=== PATIENT | female | born 1955 | race Caucasian/White ===

== ENCOUNTER 2022-10-04 10:05 | Emergency (ER) | payer MEDICARE, MEDICAID, SELFPAY ==
[2022-10-04] VITALS (9 sets, daily range): BP systolic 104–172; BP diastolic 63–83; PULSE 70–93; RESP 14–33; TEMP 36.6; O2SAT 90–100
--- NOTE | ~2022-10-04 | CT_ITS ---
EXAMINATION: CT abdomen pelvis w con DATE: 10/04/2022 14:01 INDICATION: Epigastric abdominal pain. Abdominal distention. Nausea. TECHNIQUE: Computed tomography (CT) of the abdomen and pelvis was performed with 100 mL Omnipaque 350 intravenous contrast. Automated exposure control and iterative reconstruction technique were employe d. The dose-length product was 1627.83 mGy-cm. COMPARISON: None. FINDINGS: The visualized portions of the lung bases demonstrate subpleural bands in the lower lobes a nd right middle lobe. A calcified left lung nodule and calcified left hilar lymph nodes are consisten t with old granulomatous disease. No pleural effusion. The heart size is normal. No pericardial effus ion. There are coronary artery calcifications. The liver, spleen, gallbladder, and pancreas are regina l. There are masses in the adrenal glands measuring soft tissue attenuation measuring up to 1.8 cm on the right. The kidneys are normal. There is diverticulosis of the colon without evidence of divertic ulitis. There are surgical changes in the stomach. There is a supraumbilical ventral hernia containin g nonobstructed transverse colon. There are changes of appendectomy. There is an infraumbilical ventr al hernia containing small bowel. Small bowel is dilated proximal to the hernia, consistent with obst ruction. There are no pathologically enlarged lymph nodes. There is no free intraperitoneal fluid. Th ere is severe lumbar spondylosis. IMPRESSION: 1. Small bowel obstruction secondary to an infraumbilical ventral hernia. 2. Supraumbilical ventral hernia containing nonobstructed transverse colon. 3. Bilateral adrenal masses measuring up to 1.8 cm. In the absence of known malignancy, these finding s are likely adenomas. Reviewed, dictated and finalized at location A. IMPRESSION: 1. Small bowel obstruction secondary to an infraumbilical ventral hernia. 2. Supraumbilical ventral hernia containing nonobstructed transverse colon. 3. Bilateral adrenal masses measuring up to 1.8 cm. In the absence of known mal ignancy, these findings are likely adenomas.
--- NOTE | 2022-10-04 10:07 | ECG_ITS ---
Measurements Intervals [place] Rate: 87 P: 64 DE: 207 QRS: -16 QRSD: 81 T: 60 QT: 287 QTc: 347 Interpretive Statements SINUS RHYTHM VENTRICULAR PREMATURE COMPLEX CONSIDER INFERIOR INFARCT, AGE INDETERMINATE BORDERLINE ST-T WAVE ABNORMALITY- LAT/HIGH LAT LEADS BASELINE ARTIFACT- I, II, AVR, AVL, AVF ABNORMAL ECG NO PREVIOUS ECG AVAILABLE FOR COMPARISON Electronically Signed On 10-04-2022 10:34:13 CDT by Brody Campuzano D.O.
--- NOTE | 2022-10-04 10:22 | ED.ABDPAIN ---
HPI - Abdominal Pain General Chief Complaint: Abdominal Pain Stated Complaint: abdominal pain Time Seen by Provider: 10/04/22 10:12 Source: patient Mode of arrival: ambulatory Limitations: no limitations History of Present Illness HPI narrative: Patient is a 67-year-old female who presents ED with report of abdominal pain. Patient reports she developed mid upper abdominal pain last night around 8-9 pm. Pain continued to worsen throughout the night. She developed nausea with dry heaving and was unable to keep down any food or drink. She did not take anything for the pain. Patient somewhat radiates up between her breasts. She also reports increased belching and cold sweats, denies any documented fever, diarrhea/constipation, rectal bleeding, melena, urinary sx's. Last BM yesterday and small, but normal. Patient denies previous Hx of similar pain. She does have Hx of gerd and gastric bypass surgery in 1976, ventral hernia repair 1994. Related Data Allergies Allergy/AdvReac Type Severity Reaction Status Date / Time No Known Allergies Allergy Verified 10/04/22 10:30 Review of Systems Review of Systems: CONSTITUTIONAL: See HPI. CARDIOVASCULAR: See HPI. RESPIRATORY: Denies cough or dyspnea. GASTROINTESTINAL: See HPI. GENITOURINARY: Denies dysuria or hematuria. SKIN: Denies rash or itching. MUSCULOSKELETAL: Denies back pain, joint pain, or myalgia. All systems reviewed & are unremarkable except as noted in HPI and below PMFSH Past Medical History Medical History GERD (gastroesophageal reflux disease) HTN (hypertension) Surgical History Surgical History H/O ventral hernia repair History of gastric bypass Social History Social History Smoking status: Never smoker Exam Narrative: GENERAL: Uncomfortable appearing, morbidly obese with BMI 49, non-toxic, in mild acute distress d/t pain. HEAD: Normocephalic, atraumatic. NECK: Supple. No adenopathy, no masses. RESPIRATORY: Airway patent, respirations nonlabored, borderline tachypneic. Clear to auscultation bilaterally, no rales, rhonchi, wheezing. CARDIOVASCULAR: Regular rate and rhythm without murmurs, rubs, or gallops. Peripheral pulses 2+ and equal bilaterally. ABDOMINAL: Abdomen nondistended, but slightly firm, tenderness throughout epigastric region, suprapubic region, left lower quadrant. Normoactive BS. Hernia bulge felt below umbilicus, no significant tenderness to palpation. No overlying erythema or warmth. MUSCULOSKELETAL: Moves all extremities. Strength/ROM intact without gross deformities. SKIN: Warm, dry, normal color. No rashes. NEURO: A&O X3. Speech clear. Cranial nerves II-XII grossly intact. Steady gait. No ataxic movements. PSYCHIATRIC: Appropriate mood and affect. Normal interaction. Course Vital Signs Vital signs: Vital Signs Temperature 97.9 F 10/04/22 10:10 Pulse Rate 93 10/04/22 10:10 Respiratory Rate 24 H 10/04/22 10:10 Blood Pressure 172/83 H 10/04/22 10:10 Pulse Oximetry 100 10/04/22 10:10 Oxygen Delivery Room Air 10/04/22 10:10 Temperature 97.9 F 10/04/22 10:10 Pulse Rate 88 10/04/22 17:48 Respiratory Rate 18 10/04/22 17:48 Blood Pressure 110/71 10/04/22 17:48 Pulse Oximetry 98 10/04/22 17:48 Oxygen Delivery Room Air 10/04/22 10:10 Oxygen Flow Rate 2 10/04/22 14:00 MDM - Abdominal Pain MDM Narrative Medical decision making narrative: Patient presented to ED with upper abdominal pain, nausea with dry heaving, pain radiating up into chest. Patient initially hypertensive upon arrival, tachycardic, afebrile. Likely component of pain. Patient was initially very uncomfortable appearing on initial evaluation. EKG without significant ST changes. Baseline troponin was negative. Patient given morphine, Zofran, fluids, Pr
[2022-10-04] MEDS: SODIUM CHLORIDE 0.9% IV 1,000 ML 999 ML IV CONT ×2 (10:31→12:05)
[2022-10-04] MEDS: ONDANSETRON INJ 4 MG/2 ML VIAL IV PUSH ×2 (10:31→12:05)
[2022-10-04] MEDS: MORPHINE SULFATE (*CRX) 4 MG/ML INJ IV PUSH (10:31)
[2022-10-04] MEDS: PANTOPRAZOLE SODIUM IV 40 MG VIAL IV PUSH (10:49)
[2022-10-04 11:27] LABS: Basophils Percent Auto 0.1 % (0.2-1.2); Eosinophils Percent Auto 0.1 % (0-4.4); Hematocrit 49.4 % (37.0-47.0); Immature Granulocyte Absolute 0.09 K/mm3 (0.00-0.031); Immature Granulocyte Percent A 0.6 % (0-0.5); Lymphocytes Absolute Auto 0.89 K/mm3 (0.9-3.2); Mean Corpuscular HGB Conc 32.4 g/dl (32-36); Mean Corpuscular Hemoglobin 31.7 pg (26-34); Mean Platelet Volume 11.3 fl (7.4-10.4); Monocytes Absolute Auto 0.3 K/mm3 (0.1-0.6); Monocytes Percent Auto 2.2 % (2.6-8.5); Neutrophils Absolute Auto 13.4 K/mm3 (1.3-6.7); Platelet Count Result 258 k/mm3 (150-375); Red Blood Count 5.04 M/mm3 (4.2-5.4); Red Cell Distribution Width 13.5 % (11.5-14.5); White Blood Count 14.8 K/mm3 (4.5-10.0)
[2022-10-04 11:43] LABS: Appearance Urine Cloudy (Clear); Bacteria Urine 4+ /hpf; Bilirubin Urine Negative (Negative); Blood Urine Negative (Negative); Color Urine Yellow (Yellow); Glucose Urine UA 2+ mg/dL (Negative); Ketones Urine 3+ mg/dL (Negative); Leukocyte Esterase Ur Trace LEU/UL (Negative); Nitrate Urine Positive (Negative); Non Pathogenic Casts 0-2; Protein Urine Trace mg/dL (Negative); RBC Urine 0-2 /hpf (0-2); Squamous Epithelial Cell Urine None seen /hpf (Few); WBC Urine 21-50 /hpf; pH Urine 7.5 (5.0-9.0)
[2022-10-04 11:58] LABS: Add Urine Microscopic? YES
[2022-10-04] MEDS: HYDROmorphone HCL INJ (*CRX) 1 MG/ML SYR IV PUSH (13:20)
[2022-10-04] MEDS: METOCLOPRAMIDE HCL INJ 10 MG/2 ML VIAL IV PUSH (13:20)
[2022-10-04 13:40] LABS: Alanine Aminotransferase 24 U/L (6-35); Albumin Level 3.6 g/dL (3.5-5.1); Alkaline Phosphatase 86 U/L (38-126); Anion Gap 7 mmol/L (8-16); Aspartate Amino Transferase 24 U/L (14-36); Bilirubin,Total 0.8 mg/dL (0.2-1.3); Blood Urea Nitrogen 9 mg/dL (7-17); Calcium 9.2 mg/dL (8.4-10.2); Carbon Dioxide 23 mmol/L (22-30); Chloride 106 mmol/L (98-107); Estimated CRCL calculation 115 ml/min; Estimated Glomerular Filt Rate > 60; Glucose 185 mg/dL (65-110); Lipase 21 U/L (23-300); Potassium 3.7 mmol/L (3.4-5.0); Sodium 136 mmol/L (137-145)
[2022-10-04 13:51] LABS: Troponin I < 0.012 ng/mL (0.000-0.034)
[2022-10-04 14:26] LABS: Lactic Acid Reflex 1.8 mmol/L (0.7-2.0)
--- NOTE | 2022-10-04 16:37 | PM.CNGS ---
Assessment and Plan Assessment and plan (1) Small bowel obstruction: Code(s): K56.609 - Unspecified intestinal obstruction, unspecified as to partial versus complete obstruction Status: Acute Assessment and Plan: exam benign currently in ED, likely hernia has reduced at this point, will do food challenge in ED and if josias diet ok to dc and f/u as outpt (2) Incarcerated incisional hernia: Code(s): K43.0 - Incisional hernia with obstruction, without gangrene Status: Acute Assessment and Plan: see above, likely reduced at this point, will need repair in the future although needs extesive wt loss History of Present Illness Consult details Consult date: 10/04/22 Reason for consult: abdominal pain Requesting physician: Joy Gaming PA-C Narrative: The patient is a 67-year-old female with multiple medical issues presenting with crampy abdominal pain since last night. Patient reports the pain is in her upper abdomen and radiating to her chest. The patient report nausea and dry heaving. The patient reports that she has had no appetite since this started. The patient did have a small bowel movement yesterday. Of note, the patient had a open gastric bypass in the . She subsequently developed multiple ventral hernias which were repaired in 1994. Review of Systems Constitutional: Constitutional: Reports as per HPI, Reports anorexia, Reports fatigue, Reports lethargy, Reports poor appetite and Reports weakness Eyes: Eyes: Reports no additional eye complaints ENT: Reports system reviewed and no additional complaints, except as documented Cardiovascular: Cardiovascular: Reports no additional cardiovascular complaints Respiratory: Respiratory: Reports no additional respiratory complaints Gastrointestinal: Gastrointestinal: Reports as per HPI, Reports abdominal pain, Reports belching, Reports bloating, Reports GI cramping, Reports early satiety, Reports nausea and Denies vomiting Genitourinary: Genitourinary: Reports no additional female genitourinary complaints Musculoskeletal: Musculoskeletal: Reports no additional musculoskeletal complaints Integumentary/Breasts: Skin/Breast: Reports system reviewed and no additional complaints, except as docu Neurologic: Reports system reviewed and no additional complaints, except as documented Psychiatric: Psychiatric: Reports no additional psychiatric complaints Endocrine: Endocrine: Reports no additional endocrine complaints Hematologic/Lymphatic: Hematologic/Lymphatic: Reports no additional hematologic/lymphatic complaints Allergic/Immunologic: Allergic/Immunologic: Reports no additional allergic/immunologic complaints [facility] Past Medical History Medical History GERD (gastroesophageal reflux disease) HTN (hypertension) Surgical History Surgical History H/O ventral hernia repair History of gastric bypass Social History Social History Smoking status: Never smoker Meds Home Medications and Allergies Allergies Allergy/AdvReac Type Severity Reaction Status Date / Time No Known Allergies Allergy Verified 10/04/22 10:30 Vital Signs Vital Signs - 24 hr 10/04/22 10:10 10/04/22 13:24 10/04/22 14:00 Temperature 36.6 C Pulse Rate 93 85 Respiratory Rate 24 H 18 Blood Pressure 172/83 H 124/76 Pulse Oximetry 100 98 Oxygen Delivery Room Air Oxygen Flow Rate 2 10/04/22 11:58 Temperature Pulse Rate 85 Respiratory Rate 14 Blood Pressure 104/63 Pulse Oximetry 97 Oxygen Delivery Oxygen Flow Rate Exam Const: General: cooperative, comfortable, no acute distress and obese HENMT: Head: normal to inspection, normocephalic and atraumatic Eyes: General: appearance normal, both eyes and all related structures Neck: Neck: normal visual inspection, f
== END 2022-10-04 17:49 | disposition home or self-care (01) ==
PROVIDERS: Emergency Medicine; Emergency Provider Physician Assistant; PCP Nurse Practitioner Family
DX: K43.6 Other and unspecified ventral hernia with obstruction, without gangrene (principal); K43.9 Ventral hernia without obstruction or gangrene; N30.00 Acute cystitis without hematuria; I10 Essential (primary) hypertension; K21.9 Gastro-esophageal reflux disease without esophagitis; Z98.84 Bariatric surgery status; E27.8 Other specified disorders of adrenal gland; I49.3 Ventricular premature depolarization; R94.31 Abnormal electrocardiogram [ECG] [EKG]
CPT/HCPCS: 36415; 74177; 80053; 81001; 83605; 83690; 84484; 85025; 87077; 87086; 87186; 93005; 96361; 96365; 96375; 96376; 99284; C9113; J0696; J1170; J2270; J2405; J2765; J7030; Q9967

== ENCOUNTER 2022-12-27 18:50 | Inpatient (IN) | payer MEDICARE, MEDICAID, SELFPAY ==
[2022-12-27] VITALS (17 sets, daily range): BP systolic 113–148; BP diastolic 65–85; PULSE 76–97; RESP 14–20; TEMP 36.4–36.6; O2SAT 94–99
--- NOTE | ~2022-12-27 | CT_ITS ---
CT of the Abdomen and Pelvis: Indication: Incarcerated incisional hernia Technique: 2.5 mm axial scans were obtained through the abdomen and pelvis following intravenous adm inistration of 100 cc of Omnipaque 350. Dose reduction technique was used on this scan by utilizing a utomated exposure control and iterative reconstruction technique. The dose-length product (DLP) was 1 613.74 mGy-cm. COMPARISON: 10/04/2022 Findings: Scans through the lung bases demonstrate mild bibasilar atelectatic change, and left basil ar calcified granuloma.. The liver, spleen, pancreas, gallbladder, and kidneys are within normal limits. Bilateral adrenal nod ules are unchanged. No evidence of aortic aneurysm. No lymphadenopathy. There is an umbilical/ventral hernia containing a focal portion of the transverse colon. There is no obstruction related to this hernia. There is an additional low ventral hernia just left of midline co ntaining a focal loop of small bowel, with mild distention of small bowel proximal to the hernia, and collapsed small bowel distal to the hernia. Findings suggest partial small bowel obstruction related to this hernia. There is also fluid in this hernia sac with infiltration of the herniated fat. Images through the pelvis were performed. Urinary bladder unremarkable. No adnexal mass evident. No a scites. Impression: Overall, findings are very similar to prior exam from 10/04/2022. Probable partial small bowel obstruction related to low ventral hernia just left of midline containin g small bowel. There is fluid in the hernia sac with mild infiltration of the herniated fat. Correlat e for incarceration/angulation. Stable ventral/umbilical hernia containing portion of the transverse colon, without wall thickening o r obstruction related to this hernia. Stable bilateral adrenal nodules. Reviewed, dictated and finalized at [facility]. Impression: Overall, findings are very similar to prior exam from 10/04/2022. Probable partial small bowel obstruction related to low ventral hernia just lef t of midline containing small bowel. There is fluid in the hernia sac with mild infiltration of the herniated fat. Correlate for incarceration/angulation. Stable ventral/umbilical hernia containing portion of the transverse colon, wit hout wall thickening or obstruction related to this hernia. Stable bilateral adrenal nodules.
[2022-12-27 19:38] LABS: Basophils Percent Auto 0.1 % (0.2-1.2); Hematocrit 43.3 % (37.0-47.0); Hemoglobin 14.2 g/dL (12.0-15.0); Immature Granulocyte Absolute 0.07 K/mm3 (0.00-0.031); Immature Granulocyte Percent A 0.5 % (0-0.5); Lymphocytes Absolute Auto 0.77 K/mm3 (0.9-3.2); Lymphocytes Percent Auto 5.6 % (18.3-44.2); Mean Corpuscular HGB Conc 32.8 g/dl (32-36); Mean Corpuscular Hemoglobin 31.3 pg (26-34); Mean Corpuscular Volume 95.6 fl (80-100); Mean Platelet Volume 11.2 fl (7.4-10.4); Monocytes Absolute Auto 0.1 K/mm3 (0.1-0.6); Neutrophils Absolute Auto 12.7 K/mm3 (1.3-6.7); Neutrophils Percent Auto 92.8 % (45.5-73.1); Platelet Count Result 293 k/mm3 (150-375); Red Blood Count 4.53 M/mm3 (4.2-5.4); Red Cell Distribution Width 13.2 % (11.5-14.5); White Blood Count 13.7 K/mm3 (4.5-10.0)
[2022-12-27 19:41] LABS: Appearance Urine Cloudy (Clear); Bacteria Urine 4+ /hpf; Bilirubin Urine Negative (Negative); Blood Urine Negative (Negative); Color Urine Yellow (Yellow); Glucose Urine UA 2+ mg/dL (Negative); Ketones Urine 1+ mg/dL (Negative); Leukocyte Esterase Ur 2+ LEU/UL (Negative); Nitrate Urine Positive (Negative); Non Pathogenic Casts 0-2; Protein Urine 1+ mg/dL (Negative); Specific Grav Ur 1.022 (1.001-1.035); Squamous Epithelial Cell Urine Occasional /hpf (Few); WBC Urine >100 /hpf; pH Urine 6.5 (5.0-9.0)
[2022-12-27 19:49] LABS: Add Urine Microscopic? YES
--- NOTE | 2022-12-27 19:55 | ED.ABDPAIN ---
HPI - Abdominal Pain General Chief Complaint: Abdominal Pain <DEISY Browne Last Filed: 12/28/22 00:54> Stated Complaint: abd pain/vomiting <DEISY Browne Last Filed: 12/28/22 00:54> Time Seen by Provider: 12/27/22 19:44 <DEISY Browne Last Filed: 12/28/22 00:54> Source: patient and old records reviewed <DEISY Browne Last Filed: 12/28/22 00:54> Mode of arrival: ambulatory <DEISY Browne Filed: 12/28/22 00:54> Limitations: no limitations <DEISY Browne Last Filed: 12/28/22 00:54> History of Present Illness HPI narrative: Patient is a 67 y/o female who presents to the ED with c/o diffuse lower abdominal pain. Patient reports having a known ventral hernia. She has had frequent bouts of pain related to this. She was seen in the ED here on 10/04 and noted to have an incarcerated hernia with bowel obstruction at that time. She was evaluated by general surgery in the ED and had no further pain, no further vomiting, was able to tolerate p.o. intake and thought to be appropriate for outpatient follow-up. Patient reports she now has an appointment with Dr. Dang on 01/12 as her first appointment had to be rescheduled. Yesterday after she went to [facility], patient reported having worsening pain throughout her abdomen. She also reported having nausea and vomiting yesterday, which persisted throughout the night. Patient has been taking Tylenol and ibuprofen at home without much relief of the pain. She does still feel nauseous currently. She denies any fevers. She last had a bowel movement this morning, which was small but normal. Denies rectal bleeding or melena. Patient does also report having urinary frequency, urgency, dysuria over the last several days. <DEISY Browne Last Filed: 12/28/22 00:54> Related Data Home Medications: Home Medications Medication Instructions Recorded Confirmed amlodipine 5 mg tablet 5 mg PO DAILY 12/28/22 12/28/22 escitalopram oxalate 10 mg tablet 10 mg PO DAILY 12/28/22 12/28/22 losartan 100 12.5 tablet PO DAILY 12/28/22 12/28/22 mg-hydrochlorothiazide 12.5 mg tablet oxybutynin chloride 5 mg tablet 5 mg PO DAILY 12/28/22 12/28/22 pravastatin 20 mg tablet 20 mg PO DAILY 12/28/22 12/28/22 <Joy Gaming PA-C - Last Filed: 12/28/22 00:54> Allergies/Adverse Reactions: Allergies Allergy/AdvReac Type Severity Reaction Status Date / Time No Known Allergies Allergy Verified 12/27/22 19:04 <Joy Gaming PA-C - Last Filed: 12/28/22 00:54> Review of Systems Review of Systems: CONSTITUTIONAL: Denies fever, chills, or sweats. CARDIOVASCULAR: Denies chest pain. RESPIRATORY: Denies dyspnea. GASTROINTESTINAL: See HPI. GENITOURINARY: See HPI. SKIN: Denies rash or itching. MUSCULOSKELETAL: Denies back pain, joint pain, or myalgia. <Joy Gaming PA-C - Last Filed: 12/28/22 00:54> All systems reviewed & are unremarkable except as noted in HPI and below <Joy Gaming PA-C - Last Filed: 12/28/22 00:54> PMFSH Past Medical History Medical History: Medical History GERD (gastroesophageal reflux disease) HTN (hypertension) <Joy Gaming PA-C - Last Filed: 12/28/22 00:54> Surgical History Surgical History: Surgical History H/O ventral hernia repair History of gastric bypass <Joy Gaming PA-C - Last Filed: 12/28/22 00:54> Family History Family History: Family History (Updated 12/28/22 @ 01:27 by Arabella Simms RN) Sibling Diabetes mellitus Father Acute myocardial infarction Father Hypertension Mother Dementia <Joy Gaming PA-C - Last Filed: 12/28/22 00:54> Social History Social History: Social History (Reviewed 12/27/22 @
[2022-12-27 19:57] LABS: Albumin Level 4.4 g/dL (3.5-5.1); Alkaline Phosphatase 91 U/L (38-126); Anion Gap 13 mmol/L (8-16); Aspartate Amino Transferase 28 U/L (14-36); Bilirubin,Total 0.6 mg/dL (0.2-1.3); Blood Urea Nitrogen 8 mg/dL (7-17); Carbon Dioxide 22 mmol/L (22-30); Chloride 101 mmol/L (98-107); Estimated CRCL calculation 101 ml/min; Estimated Glomerular Filt Rate > 60; Glucose 184 mg/dL (65-110); Lipase 21 U/L (23-300); Potassium 3.6 mmol/L (3.4-5.0); Sodium 136 mmol/L (137-145)
[2022-12-27 20:09] LABS: Alanine Aminotransferase 36 U/L (6-35)
[2022-12-27 20:58] LABS: Lactic Acid Reflex 3.2 mmol/L (0.7-2.0)
[2022-12-27] MEDS: SODIUM CHLORIDE 0.9% IV 1,000 ML 999 ML IV CONT (21:12)
[2022-12-27] MEDS: ONDANSETRON INJ 4 MG/2 ML VIAL IV PUSH (22:31)
[2022-12-27] MEDS: MORPHINE SULFATE (*CRX) 4 MG/ML INJ IV PUSH (22:33)
--- NOTE | 2022-12-27 22:43 | PM.IMHP ---
H&P: HPI History of Present Illness Date/Time: 12/27/22 22:43 Chief Complaint: abdominal pain Narrative: This is a 67-year-old female with past medical history significant for morbid obesity, ventral hernia, GERD, hypertension, remote history of gastric bypass. patient presents to the emergency room due to 4-5 days of abdominal pain at, abdominal discomfort, localized to the hypogastric area, nausea, dry heaving, was able to have a bowel movement, denies any fevers, chills, no melena, no hematemesis, no bright red blood per rectum, no coffee-ground emesis no changes in stool character, no weight loss. has had pain and discomfort with urination, urinary frequency. Preliminary workup was significant for a urinalysis showed numerous WBCs present, a CT of abdomen and pelvis was reported as: CT of the Abdomen and Pelvis: Indication: Incarcerated incisional hernia Technique:? 2.5 mm axial scans were obtained through the abdomen and pelvis following intravenous administration of 100 cc of Omnipaque 350. Dose reduction technique was used on this scan by utilizing automated exposure control and iterative reconstruction technique. The dose-length product (DLP) was 1613.74 mGy-cm. COMPARISON: 10/04/2022 Findings:? Scans through the lung bases demonstrate mild bibasilar atelectatic change, and left basilar calcified granuloma.. The liver, spleen, pancreas, gallbladder, and kidneys are within normal limits. Bilateral adrenal nodules are unchanged. No evidence of aortic aneurysm.? No lymphadenopathy. There is an umbilical/ventral hernia containing a focal portion of the transverse colon. There is no obstruction related to this hernia. There is an additional low ventral hernia just left of midline containing a focal loop of small bowel, with mild distention of small bowel proximal to the hernia, and collapsed small bowel distal to the hernia. Findings suggest partial small bowel obstruction related to this hernia. There is also fluid in this hernia sac with infiltration of the herniated fat. Images through the pelvis were performed. Urinary bladder unremarkable. No adnexal mass evident. No ascites. Impression: Overall, findings are very similar to prior exam from 10/04/2022. Probable partial small bowel obstruction related to low ventral hernia just left of midline containing small bowel. There is fluid in the hernia sac with mild infiltration of the herniated fat. Correlate for incarceration/angulation. Stable ventral/umbilical hernia containing portion of the transverse colon, without wall thickening or obstruction related to this hernia. Stable bilateral adrenal nodules. Review of Systems Review of Systems: abdominal pain, dry heaving, pain or burning with urination. Constitutional: Constitutional: Denies chills, Denies fatigue, Denies fever(s), Denies malaise, Denies night sweats, Reports poor appetite, Denies weakness and Denies weight loss Eyes: Eyes: Denies change in vision ENT: Denies dysphagia and Denies odynophagia Cardiovascular: Cardiovascular: Denies chest pain, Denies leg edema, Denies radiating jaw, neck or arm pain and Denies palpitations Respiratory: Respiratory: Denies cough, Denies excessive phlegm production and Denies dyspnea Gastrointestinal: Gastrointestinal: Reports abdominal pain, Denies melena, Denies hematochezia, Denies change in bowel habits, Denies change in stool character, Denies coffee ground emesis, Denies dyspepsia, Denies heartburn, Denies diarrhea, Denies loose stools, Reports nausea and Denies vomiting Genitourinary: Genitourinary: Reports nocturia and Reports dysuria Musculoskeletal: Musculoskeletal: Reports arthralgias ( BILATERAL KNEES) Integumentary/Breasts: Skin/Breast: Denies rash Neurologic: Denies focal weakness and Denies Sensory deficit (Neuro) Psychiatric: Psychiatric: Reports no additional psychiatric complaints and Reports as per HPI Endocrine: Endocrine: Denies cold intolera
[2022-12-27 23:36] LABS: Reflex Lactic Acid Yes or No Add Lactic
[2022-12-27 23:40] LABS: Lactic Acid Reflex 1.8 mmol/L (0.7-2.0)
[2022-12-28 00:31] VITALS: BP 108/76; PULSE 69; RESP 14; TEMP 36.7; O2SAT 99
[2022-12-28 01:07] VITALS: BMI 49.6
[2022-12-28 01:08] VITALS: BP 122/60; PULSE 89; RESP 18; TEMP 36.9; O2SAT 95
--- NOTE | 2022-12-28 01:24 | ADMGEN ---
This patient, Kristin Hannah, was admitted to Medical Room 347-. Patient/family oriented to hospital policies and general routines including ID bracelet, bed and alarms, visiting hours, pain management, procedures, bathroom and other care routines, personal items, smoking policy, room service/diet, and visiting hours. Information on how to activate the Rapid Response Team has been discussed. Patient/Family are encouraged to report perceived risks to care and to ask questions if they do not understand what they are told or what they should do.
[2022-12-28] MEDS: diphenhydrAMINE HCl CAP 25 MG CAPSULE 50 MG PO (02:19)
[2022-12-28] MEDS: DEXTROSE 5%/LACTATED RINGERS 1,000 ML 100 ML IV CONT (02:19)
[2022-12-28] MEDS: HYDROmorphone HCL INJ (*CRX) 1 MG/ML SYR 0.5 MG IV PUSH (02:48)
[2022-12-28 05:05] VITALS: BP 107/56; PULSE 68; RESP 16; TEMP 36.7; O2SAT 94
[2022-12-28] MEDS: PANTOPRAZOLE SODIUM IV 40 MG VIAL IV PUSH ×2 (08:40→21:16)
--- NOTE | 2022-12-28 09:36 | PM.CNGS ---
Assessment and Plan Assessment and plan (1) Incarcerated incisional hernia: Code(s): K43.0 - Incisional hernia with obstruction, without gangrene Status: Acute Assessment and Plan: exam benign at this point, will ADAT, home if able to josias diet, will need to f/u c bariatric surgeon re: further wt loss prior to repair of hernia if possible History of Present Illness Consult details Consult date: 12/28/22 Reason for consult: abdominal pain Requesting physician: Joy Gaming PA-C Narrative: The patient is a 67-year-old female presenting with a lower abdominal hernia. This hernia has been present for many years and occasionally causes her severe pain. The patient was seen in October with an incarcerated hernia that was reduced in the ER. The patient re-presented with similar symptoms. She reports some nausea but no emesis. Workup in the emergency department, including imaging, is again significant for incarcerated ventral hernia with small-bowel obstruction. Of note, since the patient has been admitted she reports the symptoms are nearly resolved. She has been having some bowel function as well. Review of Systems Constitutional: Constitutional: Reports as per HPI, Denies anorexia, Denies chills, Denies fatigue, Denies headache(s), Denies lethargy, Denies malaise, Reports poor appetite, Denies weight gain and Denies weight loss Eyes: Eyes: Denies loss of vision ENT: Denies dysphagia, Denies headache(s), Denies hearing loss and Denies sore throat Cardiovascular: Cardiovascular: Denies chest pain, Denies syncope, Denies irregular heart rhythm, Denies leg edema and Denies dyspnea Respiratory: Respiratory: Denies cough and Denies dyspnea Gastrointestinal: Gastrointestinal: Reports as per HPI, Reports abdominal pain, Denies bloating, Denies change in bowel habits, Denies change in stool character, Denies constipation, Denies dysphagia, Reports early satiety, Denies heartburn, Denies diarrhea, Reports nausea and Denies vomiting Genitourinary: Genitourinary: Denies urinary frequency, Denies dysuria and Denies urinary urgency Musculoskeletal: Musculoskeletal: Denies myalgias, Denies arthralgias and Denies muscle cramps Integumentary/Breasts: Skin/Breast: Denies non-healing lesions and Denies rash Neurologic: Denies syncope, Denies headache(s) and Denies loss of vision Endocrine: Endocrine: Denies change in body appearance and Denies fatigue Hematologic/Lymphatic: Hematologic/Lymphatic: Denies easy bleeding, Denies easy bruising and Denies lymphadenopathy PMF Past Medical History Medical History GERD (gastroesophageal reflux disease) HTN (hypertension) Surgical History Surgical History H/O ventral hernia repair History of gastric bypass Family History Family History Sibling Diabetes mellitus Father Acute myocardial infarction Father Hypertension Mother Dementia Social History Social History Smoking status: Never smoker Alcohol intake: never Substance use: never Lack of Transportation: No Lack of Food: Never True Current Housing: I Have Housing Concerned About Future Housing: No Difficulty Paying Gas/Electric Bills: No Difficulty Paying for Meds: No Currently Unemployed: No Education: Associate Degree Difficulty w/ Childcare or Family Care: No Spiritual care concerns: No Meds Home Medications and Allergies Home Medications Medication Instructions Recorded Confirmed Type amlodipine 5 mg tablet 5 mg PO DAILY 12/28/22 12/28/22 History escitalopram oxalate 10 mg tablet 10 mg PO DAILY 12/28/22 12/28/22 History losartan 100 12.5 tablet PO DAILY 12/28/22 12/28/22 History mg-hydrochlorothiazide 12.5 mg tablet oxybutynin chloride 5 mg tablet 5 m
[2022-12-28] MEDS: ESCITALOPRAM OXALATE 10 MG TABLET PO (12:47)
[2022-12-28] MEDS: amLODIPine BESYLATE 5 MG TABLET PO (12:48)
[2022-12-28] MEDS: LOSARTAN POTASSIUM 100 MG TABLET PO (12:49)
[2022-12-28] MEDS: hydroCHLOROthiazide 12.5 MG CAPSULE PO (12:49)
[2022-12-28] MEDS: oxyBUTYnin CHLORIDE 5 MG TABLET PO ×2 (13:12→17:25)
[2022-12-28 14:00] VITALS: BP 94/50; PULSE 62; RESP 18; TEMP 36.8; O2SAT 95
--- NOTE | 2022-12-28 14:00 | WPDPN ---
Progress Note: A&P Assessment and Plan (1) Partial small bowel obstruction: Code(s): K56.600 - Partial intestinal obstruction, unspecified as to cause Status: Acute Assessment and Plan: admit to regular medical floor NPO except for ice chips IV fluids daily intake and output supportive care general surgery consult 12/28/2022 interval history: today patient seen by surgery services, patient is feeling better, passing gas and started patient on clear liquids, will monitor and advance her diet as tolerated, will have her ambulate, will monitor, (2) UTI (urinary tract infection): Qualifiers: Hematuria presence: with hematuria Urinary tract infection type: acute cystitis Qualified Code(s): N30.01 - Acute cystitis with hematuria Code(s): N39.0 - Urinary tract infection, site not specified Status: Acute Assessment and Plan: patient started on ceftriaxone await urine culture identification and sensitivity (3) Lactic acidosis: Code(s): E87.20 - Acidosis, unspecified Status: Acute Assessment and Plan: likely secondary to sepsis and incarcerated hernia IV fluids continue to monitor (4) Incarcerated incisional hernia: Code(s): K43.0 - Incisional hernia with obstruction, without gangrene Status: Acute Assessment and Plan: general surgery consult (5) GERD (gastroesophageal reflux disease): Code(s): K21.9 - Gastro-esophageal reflux disease without esophagitis Status: Acute Assessment and Plan: PPI (6) History of gastric bypass: Code(s): Z98.84 - Bariatric surgery status Status: Acute Assessment and Plan: unchanged (7) HTN (hypertension): Code(s): I10 - Essential (primary) hypertension Status: Acute Assessment and Plan: continue to monitor (8) Morbid obesity with BMI of 45.0-49.9, adult: Code(s): E66.01 - Morbid (severe) obesity due to excess calories; Z68.42 - Body mass index [BMI] 45.0-49.9, adult Status: Acute Assessment and Plan: lifestyle and diet modifications Subjective Date/time seen: 12/28/22 14:00 Interval history: HPI-Narrative: ?This is a 67-year-old female with past medical history significant for morbid obesity, ventral hernia, GERD, hypertension, remote history of gastric bypass. patient presents to the emergency room due to 4-5 days of abdominal pain at, abdominal discomfort, localized to the hypogastric area, nausea, dry heaving, was able to have a bowel movement, denies any fevers, chills, no melena, no hematemesis, no bright red blood per rectum, no coffee-ground emesis no changes in stool character, no weight loss.? has had pain and discomfort with urination, urinary frequency. Preliminary workup was significant for a urinalysis showed numerous WBCs present, a CT of abdomen and pelvis was reported as: Probable partial small bowel obstruction related to low ventral hernia just left of midline containing small bowel. There is fluid in the hernia sac with mild infiltration of the herniated fat. Correlate for incarceration/angulation. Stable ventral/umbilical hernia containing portion of the transverse colon, without wall thickening or obstruction related to this hernia. 12/28/2022 interval history: today patient seen by surgery services, patient is feeling better, passing gas and started patient on clear liquids, will monitor and advance her diet as tolerated, will have her ambulate, will monitor, Review of Systems Review of Systems: abdominal pain, dry heaving, pain or burning with urination. Exam Narrative: Morbidly obese Patient is comfortable, NAD HEENT: eyes are clear and none icteric LUNGS: Normal respiratory effort ABD: Distended Lower extremities: no edema SKIN: nonjaundiced Neuro: grossly intact. Objective Data Vital Signs Vital Signs: Vital Signs - 24 hr 12/27/22 18:57 12/27/22 19:46
[2022-12-28 18:10] VITALS: BP 102/61
[2022-12-28] MEDS: SODIUM CHLORIDE 0.9% IV 1,000 ML 125 ML IV CONT (18:32)
[2022-12-28] MEDS: HYDROcodone/acetaminophen (*CRX) 5-325 MG TABLET 1 TAB PO (18:33)
[2022-12-28 21:11] VITALS: BP 106/63; PULSE 62; RESP 18; TEMP 36.6; O2SAT 96
[2022-12-28] MEDS: PRAVASTATIN SODIUM 20 MG TABLET PO (21:16)
[2022-12-29 05:06] VITALS: BP 111/60; PULSE 62; RESP 16; TEMP 36.2; O2SAT 95
[2022-12-29 05:40] LABS: Hematocrit 39.5 % (37.0-47.0); Hemoglobin 12.3 g/dL (12.0-15.0); Mean Corpuscular HGB Conc 31.1 g/dl (32-36); Mean Corpuscular Volume 99.5 fl (80-100); Platelet Count Result 220 k/mm3 (150-375); Red Blood Count 3.97 M/mm3 (4.2-5.4); Red Cell Distribution Width 13.5 % (11.5-14.5); White Blood Count 8.8 K/mm3 (4.5-10.0)
[2022-12-29 05:50] LABS: Anion Gap 5 mmol/L (8-16); Blood Urea Nitrogen 9 mg/dL (7-17); Calcium 9.2 mg/dL (8.4-10.2); Carbon Dioxide 27 mmol/L (22-30); Chloride 105 mmol/L (98-107); Estimated CRCL calculation 85 ml/min; Estimated Glomerular Filt Rate > 60; Glucose 103 mg/dL (65-110); Magnesium 1.8 mg/dL (1.6-2.3); Potassium 3.4 mmol/L (3.4-5.0); Sodium 137 mmol/L (137-145)
[2022-12-29] MEDS: polyethylene glycoL 3350 17 GM POWD.PACK PO (09:19)
[2022-12-29] MEDS: oxyBUTYnin CHLORIDE 5 MG TABLET PO ×3 (09:19→17:38)
[2022-12-29] MEDS: ESCITALOPRAM OXALATE 10 MG TABLET PO (09:19)
[2022-12-29] MEDS: PANTOPRAZOLE SODIUM IV 40 MG VIAL IV PUSH (09:19)
[2022-12-29] MEDS: POTASSIUM CHLORIDE 20 MEQ PACKET (FOR LIQUID) 40 MEQ PO (09:19)
[2022-12-29] MEDS: DOCUSATE SODIUM 100 MG CAPSULE PO (09:19)
[2022-12-29 14:00] VITALS: BP 115/58; PULSE 60; RESP 18; TEMP 36.1; O2SAT 97
--- NOTE | 2022-12-29 14:04 | PM.PNGS ---
Progress Note: A&P Assessment and Plan (1) Incarcerated incisional hernia: Code(s): K43.0 - Incisional hernia with obstruction, without gangrene Status: Acute Assessment and Plan: reduced at this time, long d/w pt re: need for wt loss to optimize hernia repair, pt understanding and will need referral to bariatric surgeon as outpt, ok to dc home at this time, exam benign and josias diet Subjective Subjective Date/Time Seen: 12/29/22 14:04 Interval history: Pt feels better, josias diet, +flatus, no further abd pain, N/V Review of Systems Review of Systems: All systems reviewed & are unremarkable except as noted in HPI and below Exam Const: General: cooperative, comfortable and no acute distress Resp: Auscultation: clear to auscultation bilaterally Cardio: Rate: regular rate Rhythm: regular rhythm GI: Inspection: normal to inspection, distended and obesity GI Palp: Yes abdominal tenderness, Yes Soft to palpation, No Tenderness to palpation present (GI) and Yes Hernia present Objective Data Vital Signs Vital Signs: Vital Signs - 24 hr 12/28/22 18:10 12/28/22 21:11 12/28/22 20:00 Temperature 36.6 C Pulse Rate 62 Respiratory Rate 18 Blood Pressure 102/61 106/63 Pulse Oximetry 96 Oxygen Delivery Room Air 12/29/22 05:06 12/29/22 08:00 Temperature 36.2 C L Pulse Rate 62 Respiratory Rate 16 Blood Pressure 111/60 Pulse Oximetry 95 Oxygen Delivery Room Air Intake/Output Intake/Output: Intake & Output 12/26/22 12/27/22 12/28/22 12/29/22 23:59 23:59 23:59 23:59 Intake Total 1050 1060 730 Output Total 450 250 Balance 1050 610 480 Meds/Results Medications: Active Medications Generic Name Dose Route Start Last Admin Trade Name Freq PRN Reason Stop Dose Admin Hydrocodone Bitart/Acetaminophen 1 tab 12/28/22 18:15 12/28/22 18:33 Hydrocodone/Acetaminophen (*Crx) 5-325 Mg Tablet PO 1 tab Q4H PRN Administration Pain Rated 4-6 Amlodipine Besylate 5 mg 12/28/22 10:00 12/29/22 09:36 Amlodipine Besylate 5 Mg Tablet PO Not Given DAILY DENNIS Docusate Sodium 100 mg 12/29/22 09:00 12/29/22 09:19 Docusate Sodium 100 Mg Capsule PO 100 mg Q12HR DENNIS Administration Escitalopram Oxalate 10 mg 12/28/22 10:00 12/29/22 09:19 Escitalopram Oxalate 10 Mg Tablet PO 10 mg DAILY DENNIS Administration Hydrochlorothiazide 12.5 mg 12/28/22 10:00 12/29/22 09:36 Hydrochlorothiazide 12.5 Mg Capsule PO 01/28/23 09:59 Not Given DAILY DENNIS Hydromorphone HCl 0.5 mg 12/28/22 02:05 12/28/22 02:48 Hydromorphone Hcl Inj (*Crx) 1 Mg/Ml Syr IV PUSH 0.5 mg Q3H PRN Administration Pain Rated 7-10 Ceftriaxone Sodium 1 gm in 50 mls @ 100 mls/hr 12/28/22 21:00 12/28/22 21:14 Rocephin 1 Gm/Ns 50 Ml IVPB 100 mls/hr Q24H DENNIS Administration Sodium Chloride 1,000 mls @ 125 mls/hr 12/28/22 18:15 12/29/22 09:32 Normal Saline Iv IV CONT Not Given .Q8H DENNIS Losartan Potassium 100 mg 12/28/22 10:00 12/29/22 09:36 Losartan Potassium 100 Mg Tablet PO Not Given DAILY DENNIS Ondansetron HCl 4 mg 12/27/22 22:56 Ondansetron Inj 4 Mg/2 Ml Vial IV PUSH Q4H PRN Nausea Oxybutynin Chloride 5 mg 12/28/22 13:00 12/29/22 12:38 Oxybutynin Chloride 5 Mg Tablet PO 5 mg TID DENNIS Administration Pantoprazole Sodium 40 mg 12/28/22 09:00 12/29/22 09:19 Pantoprazole Sodium Iv 40 Mg Vial IV PUSH 40 mg Q12HR DENNIS Administration Polyethylene Glycol 17 gm 12/29/22 09:00 12/29/22 09:19 Polyethylene Glycol 3350 17 Gm Powd.Pack PO 17 gm QAM DNENIS Administration Pravastatin Sodium 20 mg 12/28/22 21:00 12/28/22 21:16 Pravastatin Sodium 20 Mg Tablet PO 20 mg HS DENNIS Administration Radiology Results: ITS Impressions Abdomen/Pelvis CT 12/27/22 21:13 Impression: Overall, findings are very similar to prior exam from 10/04/2022. Probable partial small bowel obstruction relate
--- NOTE | 2022-12-29 15:15 | PM.DS ---
DS: Admitting Diagnosis Discharge Date 12/29/2022 Admitting Diagnosis Abdominal pain DS: Discharge Diagnosis Discharge Diagnosis (1) Partial small bowel obstruction: Code(s): K56.600 - Partial intestinal obstruction, unspecified as to cause Status: Acute Assessment and Plan: admit to regular medical floor NPO except for ice chips IV fluids daily intake and output supportive care general surgery consult 12/28/2022 interval history: today patient seen by surgery services, patient is feeling better, passing gas and started patient on clear liquids, will monitor and advance her diet as tolerated, will have her ambulate, will monitor, (2) UTI (urinary tract infection): Qualifiers: Hematuria presence: with hematuria Urinary tract infection type: acute cystitis Qualified Code(s): N30.01 - Acute cystitis with hematuria Code(s): N39.0 - Urinary tract infection, site not specified Status: Acute Assessment and Plan: patient started on ceftriaxone await urine culture identification and sensitivity (3) Lactic acidosis: Code(s): E87.20 - Acidosis, unspecified Status: Acute Assessment and Plan: likely secondary to sepsis and incarcerated hernia IV fluids continue to monitor (4) Incarcerated incisional hernia: Code(s): K43.0 - Incisional hernia with obstruction, without gangrene Status: Acute Assessment and Plan: general surgery consult (5) GERD (gastroesophageal reflux disease): Code(s): K21.9 - Gastro-esophageal reflux disease without esophagitis Status: Acute Assessment and Plan: PPI (6) History of gastric bypass: Code(s): Z98.84 - Bariatric surgery status Status: Acute Assessment and Plan: unchanged (7) HTN (hypertension): Code(s): I10 - Essential (primary) hypertension Status: Acute Assessment and Plan: continue to monitor (8) Morbid obesity with BMI of 45.0-49.9, adult: Code(s): E66.01 - Morbid (severe) obesity due to excess calories; Z68.42 - Body mass index [BMI] 45.0-49.9, adult Status: Acute Assessment and Plan: lifestyle and diet modifications DS: Summary Hospital Course Reason for hospitalization: ?abdominal pain Narrative: ?This is a 67-year-old female with past medical history significant for morbid obesity, ventral hernia, GERD, hypertension, remote history of gastric bypass. patient presents to the emergency room due to 4-5 days of abdominal pain at, abdominal discomfort, localized to the hypogastric area, nausea, dry heaving, was able to have a bowel movement, denies any fevers, chills, no melena, no hematemesis, no bright red blood per rectum, no coffee-ground emesis no changes in stool character, no weight loss.? has had pain and discomfort with urination, urinary frequency. Preliminary workup was significant for a urinalysis showed numerous WBCs present, a CT of abdomen and pelvis was reported as: Hospital Course: with incarcerated incisional hernia today patient seen by surgery services, patient is feeling better, passing gas and started patient on clear liquids,? will monitor and advance her diet as tolerated, will have her ambulate, will monitor, bariatric surgeon as outpt, Time Spent with Patient Time attestation: Total time spent providing and/or coordinating discharge services: Exam Narrative: Morbidly obese Patient is comfortable, NAD HEENT: eyes are clear and none icteric LUNGS: Normal respiratory effort ABD: Distended Lower extremities: no edema SKIN: nonjaundiced Neuro: grossly intact. DS: Data Data Completed and Pending Labs on day of discharge: Labs from last 24 hours 12/29/22 12/27/22 05:26 19:25 WBC 8.8 RBC 3.97 L Hgb 12.3 Hct 39.5 MCV 99.5 MCH 31.0 MCHC 31.1 L RDW 13.5 Plt Count 220 MPV 11.0 H Sodium 137 Potassium 3.4 Chloride 105 Carbon
[2022-12-29] MEDS: CEPHALEXIN 500 MG CAPSULE PO (17:39)
== END 2022-12-29 19:03 | disposition home or self-care (01) | DRG 690 ==
LOC: ANHED 22:48 → ANH3MED 12-28 00:14
PROVIDERS: Admitting Provider Internal Medicine; Emergency Provider Physician Assistant; PCP Nurse Practitioner Family; Visit Provider Family Medicine
DX: N39.0 Urinary tract infection, site not specified (principal); K43.0 Incisional hernia with obstruction, without gangrene; E87.20 Acidosis, unspecified; Z68.42 Body mass index [BMI] 45.0-49.9, adult; K21.9 Gastro-esophageal reflux disease without esophagitis; I10 Essential (primary) hypertension; E66.01 Morbid (severe) obesity due to excess calories; Z98.84 Bariatric surgery status
CPT/HCPCS: 36415; 74177; 80048; 80053; 81001; 83605; 83690; 83735; 85025; 85027; 87077; 87086; 87186; 96361; 96365; 96375; 99285; A9270; C9113; G0378; J0696; J1170; J2270; J2405; J7030; J7121; Q9967